=== PATIENT | male | born 1935 | race Caucasian/White ===

== ENCOUNTER 2017-02-10 05:58 | Inpatient (IN) ==
[2017-02-10] MEDS ORDERED: ACETAMINOPHEN 325 MG TABLET PO PRN (10:32)
[2017-02-10] MEDS ORDERED: HYDROmorphone 2 MG/1 ML VIAL IV PRN (10:32)
[2017-02-10] MEDS ORDERED: ONDANSETRON 4 MG/2 ML VIAL IV PRN (11:00)
[2017-02-10 11:29] LABS: Basophils % 0.3 % (0.0-0.8); Eosinophils % 0.3 % (0.00-10.9); Hematocrit 37.1 VOL% (42.0-52.0); Hemoglobin 12.7 GM/DL (14.0-18.0); Immature Granulocytes % 0.3 %; Immature Granulocytes Absolute 0.01 #; Lymphocytes # 0.4 10*3/uL (1.4-4.0); Lymphocytes % 8.8 % (21.2-54.2); Mean Corpuscular HGB Conc 34.2 GM/DL (32-36); Mean Corpuscular Hemoglobin 30 PG (27-34); Mean Corpuscular Volume 87.5 FL (87-102); Mean Platelet Volume 10.7 FL (9.6-12.0); Monocytes # 0.7 10*3/uL (0.11-0.8); Monocytes % 16.7 % (1.7-12.7); Neutrophils # 2.9 10*3/uL (1.4-7.4); Neutrophils % 73.6 % (38.7-73.9); Platelet Count 254 T/CUMM (130-400); Red Blood Count 4.24 MC/CUMM (3.8-5.5)
[2017-02-10 11:40] LABS: Partial Thromboplastin Time 37.8 SECS (0-40)
[2017-02-10 11:45] LABS: INR 3.9
[2017-02-10 11:52] LABS: PT Patient Result 39.6 SECS
[2017-02-10] MEDS: DEXTROSE 5% NACL 0.45% 1,000 ML IV SCH (11:52)
[2017-02-10 11:53] LABS: Apearance,Urine CLEAR (Clear); Bilirubin,Urine Negative (Negative); Blood, Urine Small mg/dL (Negative); Glucose,Urine (UA) Negative (Negative); Ketones,Urine Negative (Negative); Mucus,Urine Occasional /LPF (Occasional); Nitrite,Urine Negative (Negative); Protein,Urine 30 MG/DL; RBC,Urine 2 /HPF (0-4); Squamous Epithelial Cell,Urine Occasional /HPF (0-10); Urine Color Yellow (Yellow); Urine Specific Gravity 1.017 (1.001-1.035); Urine Urobilinogen < 2.0 EU/DL (0.2-1.0); WBC,Urine 1 /HPF (0-6)
[2017-02-10 11:54] LABS: Albumin 3.3 G/DL (3.4-5.0); Bilirubin,Total 0.6 MG/DL (0.2-1.0); Calcium 8.5 MG/DL (8.5-10.1); Potassium 4.4 MMOL/L (3.5-5.1); Total Protein 6.5 G/DL (6.4-8.3)
[2017-02-10] MEDS: PIPERACILLIN/TAZOBACTAM 3,375 MG in SODIUM CHLORIDE 0.9% 100 ML IV SCH ×2 (11:58→20:24)
[2017-02-10 12:22] LABS: Band Neutrophils 16 % (0-10); Lymphocytes 13 % (20-55); Metamyelocytes 1 %; Segmented Neutrophils 54 % (50-85); Total Cells Counted 100
[2017-02-10 12:23] LABS: Hypochromasia 1+; Microcytosis 1+; Platelet Estimate Normal
[2017-02-10] MEDS: PANTOPRAZOLE 40 MG TABLET PO SCH (13:29)
[2017-02-11] MEDS: PIPERACILLIN/TAZOBACTAM 3,375 MG in SODIUM CHLORIDE 0.9% 100 ML IV SCH ×3 (05:20→20:25)
[2017-02-11] MEDS: DEXTROSE 5% NACL 0.45% 1,000 ML IV SCH ×2 (05:20→17:16)
[2017-02-11] MEDS: PANTOPRAZOLE 40 MG TABLET PO SCH (11:05)
[2017-02-12] MEDS: PIPERACILLIN/TAZOBACTAM 3,375 MG in SODIUM CHLORIDE 0.9% 100 ML IV SCH ×3 (05:21→20:49)
[2017-02-12 09:45] LABS: INR 2.9
[2017-02-12] MEDS: PANTOPRAZOLE 40 MG TABLET PO SCH (12:41)
[2017-02-12] MEDS: DEXTROSE 5% NACL 0.45% 1,000 ML IV SCH (12:57)
[2017-02-13] MEDS: DEXTROSE 5% NACL 0.45% 1,000 ML IV SCH (01:19)
[2017-02-13 04:44] LABS: Basophils % 0.5 % (0.0-0.8); Eosinophils # 0.3 10*3/uL (0.0-0.87); Eosinophils % 5.2 % (0.00-10.9); Hematocrit 31.4 VOL% (42.0-52.0); Hemoglobin 10.7 GM/DL (14.0-18.0); Immature Granulocytes % 0.2 %; Immature Granulocytes Absolute 0.01 #; Lymphocytes # 2.1 10*3/uL (1.4-4.0); Lymphocytes % 35.2 % (21.2-54.2); Mean Corpuscular HGB Conc 34.1 GM/DL (32-36); Mean Corpuscular Hemoglobin 30 PG (27-34); Monocytes # 0.7 10*3/uL (0.11-0.8); Monocytes % 11.3 % (1.7-12.7); Neutrophils # 2.8 10*3/uL (1.4-7.4); Neutrophils % 47.6 % (38.7-73.9); Platelet Count 175 T/CUMM (130-400); Red Blood Count 3.61 MC/CUMM (3.8-5.5); Red Cell Distribution Width 14.4 % (9.3-17.3); White Blood Count 5.9 T/CUMM (4-12)
[2017-02-13 04:50] LABS: INR 2.4
[2017-02-13 04:58] LABS: PT Patient Result 24.1 SECS
[2017-02-13 05:04] LABS: Osmolality,Calculated 275.7 MOS/KG (273-304); Potassium 3.4 MMOL/L (3.5-5.1)
[2017-02-13] MEDS: PIPERACILLIN/TAZOBACTAM 3,375 MG in SODIUM CHLORIDE 0.9% 100 ML IV SCH (05:25)
[2017-02-13] MEDS: PANTOPRAZOLE 40 MG TABLET PO SCH (09:12)
[2017-02-13 12:21] VITALS: BP 123/79
== END 2017-02-13 13:23 | disposition home or self-care (01) | DRG 446 ==
LOC: EDUNIT# → EDBD → N.ED 05:58 → N.EDINP 08:36 → N.3E 09:41
PROVIDERS: ADMIT Surgery; ATTEND Surgery

== ENCOUNTER 2018-10-25 15:54 | Observation (INO) ==
[2018-10-25] MEDS ORDERED: PROMETHAZINE 25 MG TABLET PO PRN (19:08)
[2018-10-25] MEDS ORDERED: ACETAMINOPHEN 325 MG TABLET PO PRN (19:08)
[2018-10-25] MEDS ORDERED: MECLIZINE 12.5 MG TABLET PO PRN (19:11)
[2018-10-25 20:24] LABS: Troponin I 0.152 NG/ML (0.00-0.045)
[2018-10-25] MEDS: APIXABAN 2.5 MG TABLET PO SCH (20:52)
[2018-10-25] MEDS: MAGNESIUM OXIDE 400 MG TABLET PO SCH (20:52)
[2018-10-26 05:06] LABS: Basophils # 0.1 10*3/uL (0.0-0.2); Basophils % 0.4 % (0.0-0.8); Eosinophils # 0.1 10*3/uL (0.0-0.87); Eosinophils % 0.4 % (0.00-10.9); Hemoglobin 11.9 GM/DL (14.0-18.0); Immature Granulocytes % 4.1 %; Immature Granulocytes Absolute 0.47 #; Lymphocytes # 3.3 10*3/uL (1.4-4.0); Lymphocytes % 29.4 % (21.2-54.2); Mean Corpuscular Volume 97.4 FL (87-102); Monocytes % 14.1 % (1.7-12.7); Neutrophils % 51.6 % (38.7-73.9); Platelet Count 230 T/CUMM (130-400); Red Blood Count 3.49 MC/CUMM (3.8-5.5); White Blood Count 11.4 T/CUMM (4-12)
[2018-10-26 05:37] LABS: Calcium 8.8 MG/DL (8.5-10.1); Osmolality,Calculated 277.8 MOS/KG (273-304)
[2018-10-26] MEDS ORDERED: FINASTERIDE 5 MG TABLET PO SCH (09:00)
[2018-10-26] MEDS ORDERED: CETIRIZINE 10 MG TABLET PO SCH (09:00)
[2018-10-26] MEDS ORDERED: PANTOPRAZOLE 40 MG TABLET PO SCH (09:00)
[2018-10-26] MEDS ORDERED: POLYETHYLENE GLYCOL POWDER 17 GM PACK PO SCH (09:00)
[2018-10-26] MEDS ORDERED: hydroCHLOROthiazide 12.5 MG CAPSULE PO SCH (09:00)
[2018-10-26] MEDS: MAGNESIUM OXIDE 400 MG TABLET PO SCH (09:02)
[2018-10-26] MEDS: APIXABAN 2.5 MG TABLET PO SCH (09:02)
[2018-10-26 14:26] LABS: Troponin I 0.124 NG/ML (0.00-0.045)
[2018-10-26 17:01] VITALS: BP 137/94
== END 2018-10-26 18:46 | disposition home health service (06) ==
LOC: N.TELES
PROVIDERS: ADMIT Internal Medicine; ATTEND Internal Medicine Cardiovascular Disease

== ENCOUNTER 2018-11-06 04:27 | Inpatient (IN) ==
[2018-11-06] MEDS ORDERED: hydrALAZINE 20 MG/1 ML VIAL IV PRN (06:26)
[2018-11-06] MEDS ORDERED: ONDANSETRON 4 MG/2 ML VIAL IV PRN (06:28)
[2018-11-06] MEDS ORDERED: NICOTINE 21 MG/24 HR PATCH TRANSDERM PRN (06:28)
[2018-11-06] MEDS: SODIUM CHLORIDE 0.9% 1,000 ML IV SCH ×3 (06:30→22:30)
[2018-11-06 06:39] LABS: Basophils # 0.1 10*3/uL (0.0-0.2); Basophils % 0.5 % (0.0-0.8); Eosinophils # 0.4 10*3/uL (0.0-0.87); Eosinophils % 3.7 % (0.00-10.9); Hematocrit 28.3 VOL% (42.0-52.0); Hemoglobin 10.3 GM/DL (14.0-18.0); Lymphocytes # 1.5 10*3/uL (1.4-4.0); Lymphocytes % 15.3 % (21.2-54.2); Mean Corpuscular HGB Conc 36.4 GM/DL (32-36); Mean Platelet Volume 9.4 FL (9.6-12.0); Monocytes % 16.9 % (1.7-12.7); Neutrophils % 60.6 % (38.7-73.9); Platelet Count 253 T/CUMM (130-400); Red Blood Count 3.11 MC/CUMM (3.8-5.5); Red Cell Distribution Width 13.2 % (9.3-17.3)
[2018-11-06 07:05] LABS: Albumin 2.4 G/DL (3.4-5.0); Bilirubin,Total 0.5 MG/DL (0.2-1.0); Calcium 8.5 MG/DL (8.5-10.1); Osmolality,Calculated 241.3 MOS/KG (273-304); Total Protein 5.8 G/DL (6.4-8.3)
[2018-11-06 07:20] LABS: Eosinophils 1 % (0-10); Lymphocytes 11 % (20-55); Platelet Estimate Normal; Polychromasia Slight; Reactive Lymphocytes Few; Segmented Neutrophils 75 % (50-85); Total Cells Counted 100
[2018-11-06] MEDS ORDERED: FUROSEMIDE 40 MG/4 ML VIAL IV ONE ×2 (08:33→10:24)
[2018-11-06 09:52] LABS: Calcium 8.2 MG/DL (8.5-10.1); Osmolality,Calculated 242.3 MOS/KG (273-304)
[2018-11-06] MEDS: ERGOCALCIFEROL 50,000 UNIT CAPSULE PO SCH (11:05)
[2018-11-06 11:18] LABS: Calcium 8.6 MG/DL (8.5-10.1); Osmolality,Calculated 245.2 MOS/KG (273-304)
[2018-11-06] MEDS: SODIUM CHLORIDE/POTASSIUM CHLORIDE TABLET PO SCH ×2 (15:05→20:32)
[2018-11-06 15:31] LABS: Calcium 8.6 MG/DL (8.5-10.1); Osmolality,Calculated 247.1 MOS/KG (273-304)
[2018-11-06] MEDS ORDERED: MAGNESIUM SULF RIDER 2 GM in PREMIX 1 EACH IV PRN (15:41)
[2018-11-06] MEDS ORDERED: MAGNESIUM SULF RIDER 4 GM in PREMIX 1 EACH IV PRN (15:41)
[2018-11-06 20:09] LABS: Calcium 8.6 MG/DL (8.5-10.1); Osmolality,Calculated 249.9 MOS/KG (273-304)
[2018-11-06] MEDS: MAGNESIUM OXIDE 400 MG TABLET PO SCH (20:32)
[2018-11-06] MEDS: APIXABAN 2.5 MG TABLET PO SCH (20:33)
[2018-11-07 01:17] LABS: Calcium 8.4 MG/DL (8.5-10.1); Osmolality,Calculated 252.5 MOS/KG (273-304)
[2018-11-07] MEDS: SODIUM CHLORIDE 0.9% 1,000 ML IV SCH (05:40)
[2018-11-07 06:04] LABS: Basophils % 0.3 % (0.0-0.8); Eosinophils # 0.3 10*3/uL (0.0-0.87); Eosinophils % 2.7 % (0.00-10.9); Hematocrit 29.4 VOL% (42.0-52.0); Hemoglobin 10.7 GM/DL (14.0-18.0); Immature Granulocytes % 2.3 %; Immature Granulocytes Absolute 0.21 #; Lymphocytes # 1.6 10*3/uL (1.4-4.0); Lymphocytes % 17.3 % (21.2-54.2); Mean Corpuscular HGB Conc 36.4 GM/DL (32-36); Mean Platelet Volume 10.3 FL (9.6-12.0); Neutrophils % 56.4 % (38.7-73.9); Platelet Count 275 T/CUMM (130-400); Red Blood Count 3.23 MC/CUMM (3.8-5.5); Red Cell Distribution Width 13.2 % (9.3-17.3); White Blood Count 9.2 T/CUMM (4-12)
[2018-11-07 06:32] LABS: Eosinophils 3 % (0-10); Hypochromasia 1+; Lymphocytes 16 % (20-55); Ovalocytes Slight; Platelet Estimate Adequate; Segmented Neutrophils 55 % (50-85); Total Cells Counted 100
[2018-11-07 06:57] LABS: Calcium 8.5 MG/DL (8.5-10.1); Free T4 (Free Thyroxine) 1.19 NG/DL (0.76-1.46); Osmolality,Calculated 251.5 MOS/KG (273-304); Thyroid Stimulating Hormone 2.13 uIU/ml (0.358-3.74)
[2018-11-07 08:08] LABS: Apearance,Urine CLEAR (Clear); Bilirubin,Urine Negative (Negative); Blood, Urine Small mg/dL (Negative); Glucose,Urine (UA) Negative (Negative); Ketones,Urine Negative (Negative); Mucus,Urine Occasional /LPF (Occasional); Nitrite,Urine Negative (Negative); Protein,Urine 30 MG/DL; RBC,Urine 10 /HPF (0-4); Urine Color Yellow (Yellow); Urine Specific Gravity 1.014 (1.001-1.035); Urine Urobilinogen < 2.0 EU/DL (0.2-1.0); WBC,Urine 1 /HPF (0-6)
[2018-11-07] MEDS: FAMOTIDINE 20 MG TABLET PO SCH (10:03)
[2018-11-07] MEDS: MAGNESIUM OXIDE 400 MG TABLET PO SCH ×2 (10:03→20:38)
[2018-11-07] MEDS: SODIUM CHLORIDE/POTASSIUM CHLORIDE TABLET PO SCH ×3 (10:03→20:39)
[2018-11-07] MEDS: FINASTERIDE 5 MG TABLET PO SCH (10:04)
[2018-11-07] MEDS: amLODIPine 5 MG TABLET PO SCH (10:04)
[2018-11-07] MEDS: TAMSULOSIN 0.4 MG CAPSULE PO SCH (10:04)
[2018-11-07] MEDS: APIXABAN 2.5 MG TABLET PO SCH ×2 (10:04→20:39)
[2018-11-07] MEDS: PANTOPRAZOLE 40 MG TABLET PO SCH (10:04)
[2018-11-08] MEDS: ACETAMINOPHEN 325 MG TABLET PO PRN ×2 (01:16→09:24)
[2018-11-08 04:51] LABS: Basophils # 0.1 10*3/uL (0.0-0.2); Basophils % 0.5 % (0.0-0.8); Eosinophils # 0.3 10*3/uL (0.0-0.87); Eosinophils % 3.4 % (0.00-10.9); Hemoglobin 10.4 GM/DL (14.0-18.0); Immature Granulocytes % 2.8 %; Immature Granulocytes Absolute 0.26 #; Lymphocytes # 1.8 10*3/uL (1.4-4.0); Lymphocytes % 19.4 % (21.2-54.2); Mean Corpuscular HGB Conc 35.9 GM/DL (32-36); Mean Corpuscular Volume 91.8 FL (87-102); Mean Platelet Volume 10.1 FL (9.6-12.0); Monocytes % 22.7 % (1.7-12.7); Neutrophils % 51.2 % (38.7-73.9); Platelet Count 272 T/CUMM (130-400); Red Blood Count 3.16 MC/CUMM (3.8-5.5); Red Cell Distribution Width 13.2 % (9.3-17.3); White Blood Count 9.4 T/CUMM (4-12)
[2018-11-08 05:15] LABS: Calcium 8.6 MG/DL (8.5-10.1); Osmolality,Calculated 252.5 MOS/KG (273-304)
[2018-11-08 05:25] LABS: Band Neutrophils 9 % (0-10); Eosinophils 3 % (0-10); Lymphocytes 19 % (20-55); Segmented Neutrophils 56 % (50-85); Total Cells Counted 100
[2018-11-08 05:26] LABS: Ovalocytes Few; Platelet Estimate Adequate
[2018-11-08] MEDS: FAMOTIDINE 20 MG TABLET PO SCH (09:23)
[2018-11-08] MEDS: SODIUM CHLORIDE/POTASSIUM CHLORIDE TABLET PO SCH ×3 (09:23→22:16)
[2018-11-08] MEDS: amLODIPine 5 MG TABLET PO SCH (09:23)
[2018-11-08] MEDS: MAGNESIUM OXIDE 400 MG TABLET PO SCH ×2 (09:23→22:15)
[2018-11-08] MEDS: FINASTERIDE 5 MG TABLET PO SCH (09:23)
[2018-11-08] MEDS: APIXABAN 2.5 MG TABLET PO SCH ×2 (09:23→22:16)
[2018-11-08] MEDS: TAMSULOSIN 0.4 MG CAPSULE PO SCH (09:24)
[2018-11-08] MEDS: PANTOPRAZOLE 40 MG TABLET PO SCH (09:24)
[2018-11-09 06:29] LABS: Calcium 8.9 MG/DL (8.5-10.1); Osmolality,Calculated 250.6 MOS/KG (273-304)
[2018-11-09] MEDS: ACETAMINOPHEN 325 MG TABLET PO PRN (07:40)
[2018-11-09] MEDS: SODIUM CHLORIDE/POTASSIUM CHLORIDE TABLET PO SCH ×3 (08:38→20:27)
[2018-11-09] MEDS: MAGNESIUM OXIDE 400 MG TABLET PO SCH ×2 (08:38→20:27)
[2018-11-09] MEDS: amLODIPine 5 MG TABLET PO SCH (08:39)
[2018-11-09] MEDS: NYSTATIN 500,000 UNIT/5 ML UDCUP SWISH/SWAL SCH ×4 (08:39→20:26)
[2018-11-09] MEDS: TAMSULOSIN 0.4 MG CAPSULE PO SCH (08:39)
[2018-11-09] MEDS: PANTOPRAZOLE 40 MG TABLET PO SCH (08:39)
[2018-11-09] MEDS: FAMOTIDINE 20 MG TABLET PO SCH (08:39)
[2018-11-09] MEDS: APIXABAN 2.5 MG TABLET PO SCH ×2 (08:39→20:26)
[2018-11-09] MEDS: FINASTERIDE 5 MG TABLET PO SCH (08:39)
[2018-11-10] MEDS ORDERED: ALBUTEROL/IPRATROPIUM 3 ML NEB RESP TX ONE (00:24)
[2018-11-10 00:54] LABS: ABG Base Excess 0.8 MMOL/L (-2.5-2.5); ABG Oxygen Saturation 92.2 % (95-100); ABG PCO2 29.1 MM HG (35-48); ABG PH 7.503 (7.35-7.45); ABG PO2 57.6 MM HG (80-95); ABG TCO2 19.7 MMOL/L (23-27); Allen Test Positive; Pt O2 Delivery Device Venturi Mask
[2018-11-10 02:16] LABS: ABG Base Excess -0.2 MMOL/L (-2.5-2.5); ABG HCO3 21.8 MMOL/L (20-26); ABG Oxygen Saturation 96.6 % (95-100); ABG PCO2 27.6 MM HG (35-48); ABG PH 7.516 (7.35-7.45); ABG TCO2 22.7 MMOL/L (23-27); Allen Test Positive; Pt O2 Delivery Device Other
[2018-11-10 09:18] LABS: Calcium 8.9 MG/DL (8.5-10.1); Osmolality,Calculated 259.1 MOS/KG (273-304)
[2018-11-10] MEDS: MAGNESIUM OXIDE 400 MG TABLET PO SCH ×2 (09:41→22:00)
[2018-11-10] MEDS: TAMSULOSIN 0.4 MG CAPSULE PO SCH (09:41)
[2018-11-10] MEDS: FINASTERIDE 5 MG TABLET PO SCH (09:41)
[2018-11-10] MEDS: FAMOTIDINE 20 MG TABLET PO SCH (09:41)
[2018-11-10] MEDS: SODIUM CHLORIDE/POTASSIUM CHLORIDE TABLET PO SCH ×3 (09:41→22:00)
[2018-11-10] MEDS: APIXABAN 2.5 MG TABLET PO SCH ×2 (09:42→22:00)
[2018-11-10] MEDS: PANTOPRAZOLE 40 MG TABLET PO SCH (09:42)
[2018-11-10] MEDS: amLODIPine 5 MG TABLET PO SCH (09:42)
[2018-11-10] MEDS: NYSTATIN 500,000 UNIT/5 ML UDCUP SWISH/SWAL SCH ×4 (09:42→22:00)
[2018-11-10] MEDS: ACETAMINOPHEN 325 MG TABLET PO PRN (22:05)
[2018-11-11 07:04] LABS: Calcium 9.2 MG/DL (8.5-10.1); Osmolality,Calculated 262.8 MOS/KG (273-304)
[2018-11-11] MEDS: NYSTATIN 500,000 UNIT/5 ML UDCUP SWISH/SWAL SCH ×4 (09:49→21:47)
[2018-11-11] MEDS: APIXABAN 2.5 MG TABLET PO SCH ×2 (09:49→21:47)
[2018-11-11] MEDS: PANTOPRAZOLE 40 MG TABLET PO SCH (09:49)
[2018-11-11] MEDS: MAGNESIUM OXIDE 400 MG TABLET PO SCH ×2 (09:49→21:47)
[2018-11-11] MEDS: FINASTERIDE 5 MG TABLET PO SCH (09:49)
[2018-11-11] MEDS: FAMOTIDINE 20 MG TABLET PO SCH (09:49)
[2018-11-11] MEDS: SODIUM CHLORIDE/POTASSIUM CHLORIDE TABLET PO SCH ×3 (09:50→21:47)
[2018-11-11] MEDS: MEROPENEM 500 MG in SODIUM CHLORIDE 0.9% 100 ML IV SCH ×3 (09:50→21:48)
[2018-11-11] MEDS: amLODIPine 5 MG TABLET PO SCH (09:50)
[2018-11-11] MEDS: TAMSULOSIN 0.4 MG CAPSULE PO SCH (09:53)
[2018-11-11] MEDS: ACETAMINOPHEN 325 MG TABLET PO PRN (17:16)
[2018-11-12] MEDS: MEROPENEM 500 MG in SODIUM CHLORIDE 0.9% 100 ML IV SCH ×4 (03:45→20:34)
[2018-11-12] MEDS ORDERED: COSYNTROPIN 0.25 MG VIAL IV ONE (07:00)
[2018-11-12] MEDS: PANTOPRAZOLE 40 MG TABLET PO SCH (09:57)
[2018-11-12] MEDS: APIXABAN 2.5 MG TABLET PO SCH ×2 (09:57→20:34)
[2018-11-12] MEDS: FINASTERIDE 5 MG TABLET PO SCH (09:57)
[2018-11-12] MEDS: MAGNESIUM OXIDE 400 MG TABLET PO SCH ×2 (09:57→20:34)
[2018-11-12] MEDS: TAMSULOSIN 0.4 MG CAPSULE PO SCH (09:57)
[2018-11-12] MEDS: FAMOTIDINE 20 MG TABLET PO SCH (09:57)
[2018-11-12] MEDS: amLODIPine 5 MG TABLET PO SCH (09:57)
[2018-11-12] MEDS: SODIUM CHLORIDE/POTASSIUM CHLORIDE TABLET PO SCH ×3 (09:57→20:34)
[2018-11-12] MEDS ORDERED: FUROSEMIDE 40 MG/4 ML VIAL IV ONE (14:45)
[2018-11-12] MEDS: AZITHROMYCIN INJ 500 MG in SODIUM CHLORIDE 0.9% 250 ML IV SCH (18:42)
[2018-11-13] MEDS: MEROPENEM 500 MG in SODIUM CHLORIDE 0.9% 100 ML IV SCH ×4 (03:25→21:00)
[2018-11-13 06:43] LABS: Basophils % 0.4 % (0.0-0.8); Eosinophils # 0.5 10*3/uL (0.0-0.87); Eosinophils % 6.6 % (0.00-10.9); Hematocrit 26.1 VOL% (42.0-52.0); Hemoglobin 9.3 GM/DL (14.0-18.0); Immature Granulocytes % 1.3 %; Immature Granulocytes Absolute 0.11 #; Lymphocytes # 1.5 10*3/uL (1.4-4.0); Lymphocytes % 17.7 % (21.2-54.2); Mean Corpuscular HGB Conc 35.6 GM/DL (32-36); Mean Corpuscular Volume 92.6 FL (87-102); Mean Platelet Volume 9.8 FL (9.6-12.0); Monocytes % 20.3 % (1.7-12.7); Neutrophils % 53.7 % (38.7-73.9); Platelet Count 325 T/CUMM (130-400); Red Blood Count 2.82 MC/CUMM (3.8-5.5); Red Cell Distribution Width 13.3 % (9.3-17.3); White Blood Count 8.2 T/CUMM (4-12)
[2018-11-13 07:02] LABS: Calcium 9.2 MG/DL (8.5-10.1); Osmolality,Calculated 264.7 MOS/KG (273-304)
[2018-11-13 07:24] LABS: Band Neutrophils 2 % (0-10); Eosinophils 1 % (0-10); Lymphocytes 20 % (20-55); Platelet Estimate Normal; Segmented Neutrophils 61 % (50-85); Total Cells Counted 100
[2018-11-13 07:25] LABS: Anisocytosis 1+; Macrocytosis Slight; Poikilocytosis Slight
[2018-11-13] MEDS: TAMSULOSIN 0.4 MG CAPSULE PO SCH (09:15)
[2018-11-13] MEDS: amLODIPine 5 MG TABLET PO SCH (09:15)
[2018-11-13] MEDS: SODIUM CHLORIDE/POTASSIUM CHLORIDE TABLET PO SCH ×3 (09:15→20:58)
[2018-11-13] MEDS: FAMOTIDINE 20 MG TABLET PO SCH (09:15)
[2018-11-13] MEDS: FINASTERIDE 5 MG TABLET PO SCH (09:15)
[2018-11-13] MEDS: PANTOPRAZOLE 40 MG TABLET PO SCH (09:15)
[2018-11-13] MEDS: MAGNESIUM OXIDE 400 MG TABLET PO SCH ×2 (09:15→20:58)
[2018-11-13] MEDS: APIXABAN 2.5 MG TABLET PO SCH ×2 (09:15→20:58)
[2018-11-13] MEDS: ERGOCALCIFEROL 50,000 UNIT CAPSULE PO SCH (12:28)
[2018-11-13] MEDS: FUROSEMIDE 40 MG/4 ML VIAL IV SCH (16:40)
[2018-11-13] MEDS: AZITHROMYCIN INJ 500 MG in SODIUM CHLORIDE 0.9% 250 ML IV SCH (19:10)
[2018-11-14] MEDS: MEROPENEM 500 MG in SODIUM CHLORIDE 0.9% 100 ML IV SCH ×4 (02:57→20:37)
[2018-11-14 05:18] LABS: Calcium 9.7 MG/DL (8.5-10.1); Osmolality,Calculated 266.5 MOS/KG (273-304)
[2018-11-14] MEDS ORDERED: FUROSEMIDE 20 MG/2 ML VIAL ONE (08:45)
[2018-11-14] MEDS: FUROSEMIDE 40 MG/4 ML VIAL IV SCH ×2 (09:40→16:55)
[2018-11-14] MEDS: amLODIPine 2.5 MG TABLET PO SCH (11:23)
[2018-11-14] MEDS: SODIUM CHLORIDE/POTASSIUM CHLORIDE TABLET PO SCH ×3 (11:24→20:30)
[2018-11-14] MEDS: MAGNESIUM OXIDE 400 MG TABLET PO SCH ×2 (11:39→20:30)
[2018-11-14] MEDS: APIXABAN 2.5 MG TABLET PO SCH ×2 (11:39→20:30)
[2018-11-14] MEDS: TAMSULOSIN 0.4 MG CAPSULE PO SCH (11:39)
[2018-11-14] MEDS: FINASTERIDE 5 MG TABLET PO SCH (11:40)
[2018-11-14] MEDS: FAMOTIDINE 20 MG TABLET PO SCH (11:40)
[2018-11-14] MEDS: PANTOPRAZOLE 40 MG TABLET PO SCH (11:40)
[2018-11-14] MEDS: methylPREDNISolone SOD SUC 40 MG/1 ML VIAL IV SCH (20:32)
[2018-11-14] MEDS: AZITHROMYCIN INJ 500 MG in SODIUM CHLORIDE 0.9% 250 ML IV SCH (22:06)
[2018-11-15] MEDS: MEROPENEM 500 MG in SODIUM CHLORIDE 0.9% 100 ML IV SCH ×4 (03:01→21:10)
[2018-11-15 04:57] LABS: Basophils % 0.6 % (0.0-0.8); Eosinophils % 0.2 % (0.00-10.9); Hematocrit 30.9 VOL% (42.0-52.0); Hemoglobin 10.6 GM/DL (14.0-18.0); Immature Granulocytes % 2.1 %; Lymphocytes # 0.7 10*3/uL (1.4-4.0); Lymphocytes % 14.4 % (21.2-54.2); Mean Corpuscular HGB Conc 34.3 GM/DL (32-36); Mean Corpuscular Volume 93.4 FL (87-102); Mean Platelet Volume 10.1 FL (9.6-12.0); Monocytes % 3.5 % (1.7-12.7); Neutrophils % 79.2 % (38.7-73.9); Platelet Count 435 T/CUMM (130-400); Red Blood Count 3.31 MC/CUMM (3.8-5.5); Red Cell Distribution Width 13.3 % (9.3-17.3); White Blood Count 4.8 T/CUMM (4-12)
[2018-11-15 05:09] LABS: Calcium 10.2 MG/DL (8.5-10.1); Osmolality,Calculated 273.7 MOS/KG (273-304)
[2018-11-15] MEDS: FINASTERIDE 5 MG TABLET PO SCH (10:03)
[2018-11-15] MEDS: MAGNESIUM OXIDE 400 MG TABLET PO SCH ×2 (10:03→22:00)
[2018-11-15] MEDS: amLODIPine 2.5 MG TABLET PO SCH (10:03)
[2018-11-15] MEDS: PANTOPRAZOLE 40 MG TABLET PO SCH (10:04)
[2018-11-15] MEDS: TAMSULOSIN 0.4 MG CAPSULE PO SCH (10:04)
[2018-11-15] MEDS: APIXABAN 2.5 MG TABLET PO SCH ×2 (10:04→22:00)
[2018-11-15] MEDS: methylPREDNISolone SOD SUC 40 MG/1 ML VIAL IV SCH ×2 (10:06→22:00)
[2018-11-15] MEDS: FUROSEMIDE 40 MG/4 ML VIAL IV SCH ×2 (10:09→16:00)
[2018-11-15] MEDS: FAMOTIDINE 20 MG TABLET PO SCH (10:13)
[2018-11-15] MEDS: SODIUM CHLORIDE/POTASSIUM CHLORIDE TABLET PO SCH ×3 (10:13→22:00)
[2018-11-15 10:56] LABS: EBV Nuclear Ag Antibody Positive (Negative); EBV Virus IgG Ab Positive (Negative); EBV Virus IgM Ab Negative (Negative)
[2018-11-15] MEDS ORDERED: TUBERCULIN SKIN TEST 0.1 ML SYRINGE INTRADERM ONE (12:08)
[2018-11-15 14:10] LABS: Mycoplasma pneumoniae Ab Inter SEE COMMENTS; Mycoplasma pneumoniae Ab, IgG Positive (Negative); Mycoplasma pneumoniae Ab, IgM Negative (Negative)
[2018-11-15] MEDS: AZITHROMYCIN INJ 500 MG in SODIUM CHLORIDE 0.9% 250 ML IV SCH (22:00)
[2018-11-16] MEDS: MEROPENEM 500 MG in SODIUM CHLORIDE 0.9% 100 ML IV SCH ×2 (03:19→10:01)
[2018-11-16] MEDS: SODIUM CHLORIDE/POTASSIUM CHLORIDE TABLET PO SCH (09:54)
[2018-11-16] MEDS: amLODIPine 2.5 MG TABLET PO SCH (09:55)
[2018-11-16] MEDS: FAMOTIDINE 20 MG TABLET PO SCH (09:55)
[2018-11-16] MEDS: FINASTERIDE 5 MG TABLET PO SCH (09:56)
[2018-11-16] MEDS: PANTOPRAZOLE 40 MG TABLET PO SCH (09:56)
[2018-11-16] MEDS: TAMSULOSIN 0.4 MG CAPSULE PO SCH (09:56)
[2018-11-16] MEDS: APIXABAN 2.5 MG TABLET PO SCH (09:56)
[2018-11-16] MEDS: MAGNESIUM OXIDE 400 MG TABLET PO SCH (09:56)
[2018-11-16] MEDS: FUROSEMIDE 40 MG/4 ML VIAL IV SCH (09:58)
[2018-11-16] MEDS: methylPREDNISolone SOD SUC 40 MG/1 ML VIAL IV SCH (09:59)
[2018-11-16 11:52] VITALS: BP 100/62
== END 2018-11-16 14:45 | disposition swing bed (61) | DRG 640 ==
LOC: N.ICU 04:35 → SUATTDRO 05:38 → N.2E 11-08 14:52
PROVIDERS: ADMIT Internal Medicine Nephrology; ATTEND Internal Medicine

== ENCOUNTER 2019-01-23 13:56 | Inpatient (IN) ==
[2019-01-23 15:03] LABS: Basophils % 0.6 % (0.0-0.8); Eosinophils # 0.2 10*3/uL (0.0-0.87); Eosinophils % 3.6 % (0.00-10.9); Hematocrit 25.6 VOL% (42.0-52.0); Hemoglobin 9.2 GM/DL (14.0-18.0); Immature Granulocytes % 0.5 %; Immature Granulocytes Absolute 0.03 #; Lymphocytes # 1.9 10*3/uL (1.4-4.0); Lymphocytes % 31.5 % (21.2-54.2); Mean Corpuscular HGB Conc 35.9 GM/DL (32-36); Mean Corpuscular Volume 90.1 FL (87-102); Mean Platelet Volume 10.6 FL (9.6-12.0); Monocytes % 17.5 % (1.7-12.7); Neutrophils % 46.3 % (38.7-73.9); Platelet Count 154 T/CUMM (130-400); Red Blood Count 2.84 MC/CUMM (3.8-5.5); Red Cell Distribution Width 14.9 % (9.3-17.3); White Blood Count 6.2 T/CUMM (4-12)
[2019-01-23 15:19] LABS: INR 1.2; PT Patient Result 13.4 SECS (9.6-12.2); Partial Thromboplastin Time 36.3 SECS (20.8-36.0)
[2019-01-23 15:21] LABS: % Iron Saturation 34.8 % (18-50)
[2019-01-23 15:25] LABS: Albumin 3.1 G/DL (3.4-5.0); Bilirubin,Total 1.7 MG/DL (0.2-1.0); Calcium 8.5 MG/DL (8.5-10.1); Osmolality,Calculated 253.2 MOS/KG (273-304); Total Protein 5.8 G/DL (6.4-8.3)
[2019-01-23 15:41] LABS: Folate 15.6 NG/ML (5.4-24.0)
[2019-01-23 16:14] LABS: Anisocytosis 2+; Eosinophils 4 % (0-10); Lymphocytes 31 % (20-55); Macrocytosis 1+; Microcytosis 2+; Segmented Neutrophils 59 % (50-85); Total Cells Counted 100
[2019-01-23 16:15] LABS: Burr Cells Slight; Elliptocytes 2+
[2019-01-23 16:16] LABS: Platelet Estimate Normal; Reactive Lymphocytes Slight; Schistocytes Slight; Spherocytes Few
[2019-01-23] MEDS ORDERED: ENOXAPARIN 100 MG/ML SYRINGE SUBCUT STA (16:34)
[2019-01-23] MEDS ORDERED: ENOXAPARIN 120 MG/0.8 ML SYRINGE SUBCUT ONE (16:39)
[2019-01-23] MEDS ORDERED: FUROSEMIDE 40 MG/4 ML VIAL IV STA (17:21)
[2019-01-23] MEDS ORDERED: ONDANSETRON 4 MG/2 ML VIAL IV PRN (18:05)
[2019-01-23] MEDS ORDERED: ACETAMINOPHEN 325 MG TABLET PO PRN (18:05)
[2019-01-23] MEDS: TAMSULOSIN 0.4 MG CAPSULE PO SCH (20:56)
[2019-01-23] MEDS: carvediloL 6.25 MG TABLET PO SCH (20:57)
[2019-01-23] MEDS ORDERED: cycloSPORINE (MODIFIED) 100 MG CAPSULE PO SCH (21:00)
[2019-01-24] MEDS: APIXABAN 5 MG TABLET PO SCH ×2 (04:37→20:20)
[2019-01-24 05:25] LABS: Basophils % 0.5 % (0.0-0.8); Eosinophils # 0.2 10*3/uL (0.0-0.87); Eosinophils % 3.6 % (0.00-10.9); Hematocrit 23.3 VOL% (42.0-52.0); Hemoglobin 8.4 GM/DL (14.0-18.0); Immature Granulocytes % 0.5 %; Immature Granulocytes Absolute 0.03 #; Lymphocytes # 2.2 10*3/uL (1.4-4.0); Lymphocytes % 40.1 % (21.2-54.2); Mean Corpuscular HGB Conc 36.1 GM/DL (32-36); Mean Corpuscular Volume 89.3 FL (87-102); Mean Platelet Volume 10.7 FL (9.6-12.0); Monocytes % 19.9 % (1.7-12.7); Neutrophils % 35.4 % (38.7-73.9); Platelet Count 149 T/CUMM (130-400); Red Blood Count 2.61 MC/CUMM (3.8-5.5); Red Cell Distribution Width 14.8 % (9.3-17.3); White Blood Count 5.6 T/CUMM (4-12)
[2019-01-24 05:46] LABS: Calcium 8.7 MG/DL (8.5-10.1); Osmolality,Calculated 256.9 MOS/KG (273-304)
[2019-01-24 07:20] LABS: Eosinophils 1 % (0-10); Lymphocytes 42 % (20-55); Segmented Neutrophils 34 % (50-85); Total Cells Counted 100
[2019-01-24 07:21] LABS: Hypochromasia 1+; Microcytosis 1+; Ovalocytes Slight; Platelet Estimate Adequate
[2019-01-24] MEDS ORDERED: MAGNESIUM SULF RIDER 4 GM in PREMIX 1 EACH IV PRN (08:30)
[2019-01-24] MEDS ORDERED: MAGNESIUM HYDROXIDE SUSP 30 ML UDCUP PO PRN (08:55)
[2019-01-24] MEDS ORDERED: ERGOCALCIFEROL 50,000 UNIT CAPSULE PO SCH (09:00)
[2019-01-24] MEDS: TAMSULOSIN 0.4 MG CAPSULE PO SCH ×2 (09:55→20:20)
[2019-01-24] MEDS: FINASTERIDE 5 MG TABLET PO SCH (09:55)
[2019-01-24] MEDS: PANTOPRAZOLE 40 MG TABLET PO SCH (09:55)
[2019-01-24] MEDS: carvediloL 6.25 MG TABLET PO SCH ×2 (09:56→16:32)
[2019-01-25] MEDS: MAGNESIUM SULF RIDER 2 GM in PREMIX 1 EACH IV PRN ×2 (02:16→03:48)
[2019-01-25 05:47] LABS: Calcium 8.7 MG/DL (8.5-10.1); Osmolality,Calculated 257.8 MOS/KG (273-304)
[2019-01-25] MEDS ORDERED: FUROSEMIDE 40 MG TABLET PO SCH (09:00)
[2019-01-25] MEDS ORDERED: BISACODYL 5 MG TABLET PO ONE (09:46)
[2019-01-25] MEDS: APIXABAN 5 MG TABLET PO SCH (09:58)
[2019-01-25] MEDS: TAMSULOSIN 0.4 MG CAPSULE PO SCH (10:05)
[2019-01-25] MEDS: FINASTERIDE 5 MG TABLET PO SCH (10:05)
[2019-01-25] MEDS: PANTOPRAZOLE 40 MG TABLET PO SCH (10:05)
[2019-01-25] MEDS: carvediloL 6.25 MG TABLET PO SCH (11:07)
[2019-01-25 11:47] VITALS: BP 126/77
[2019-01-25] MEDS ORDERED: carvediloL 3.125 MG TABLET PO SCH (21:00)
[2019-01-31] MEDS ORDERED: APIXABAN 5 MG TABLET PO SCH (09:00)
== END 2019-01-25 15:32 | disposition home health service (06) | DRG 300 ==
LOC: N.ED 13:56 → N.EDINP 17:04 → N.5E 17:56
PROVIDERS: ADMIT Internal Medicine; ATTEND Internal Medicine